=== PATIENT | female | born 1995 | race Caucasian/White ===

== ENCOUNTER 2020-08-21 14:30 | Inpatient (IN) | payer MEDICAID, SELFPAY ==
[~2020-08-21] VITALS: Ht 157.5 cm; Wt 83.9 kg
[2020-08-21] MEDS ORDERED: MISOPROSTOL 25 MCG TAB VG PRN (14:45)
[2020-08-21] MEDS ORDERED: METHYLERGONOVINE 0.2 MG/ML AMP IM PRN (14:45)
[2020-08-21] MEDS ORDERED: CARBOPROST 250 MCG/ML AMP IM PRN (14:45)
[2020-08-21] MEDS ORDERED: OXYTOCIN 20 UNITS in LACTATED RINGERS 1,000 ML IV SCH (14:45)
[2020-08-21] MEDS ORDERED: PNV91TAB10 PO (14:51)
[2020-08-21] MEDS: LACTATED RINGERS 1,000 ML IV SCH ×2 (15:39→22:54)
[2020-08-21] MEDS ORDERED: AMPICILLIN 2,000 MG in NACL 0.9% MINI-BAG PLUS 100 ML IV SCH (15:55)
[2020-08-21 16:08] LABS: BASOPHILS % (AUTO) 0.2 % (0.0-2.0); EOSINOPHILS % (AUTO) 0.7 % (0.0-4.0); HEMATOCRIT 33.7 % (36-48); HEMOGLOBIN 11.5 g/dL (12.0-16.0); LYMPHOCYTES % (AUTO) 14.6 % (20.5-51.1); MEAN CORPUSCULAR HEMOGLOBIN 31 pg (27-31); MEAN CORPUSCULAR HGB CONC 34 g/dL (33-37); MEAN CORPUSCULAR VOLUME 90.5 fL (80-94); MONOCYTES # (AUTO) 0.5 K/uL (0.8-1.0); MONOCYTES % (AUTO) 7.2 % (1.7-9.3); NEUTROPHILS # (AUTO) 5.5 K/uL (1.8-7.7); NEUTROPHILS % (AUTO) 77.3 % (42.2-75.2); PLATELET COUNT (AUTO) 148 K/uL (140-450); RED BLOOD CELL COUNT(AUTO) 3.73 MIL/uL (4.20-5.40); RED CELL DISTRIBUTION WIDTH 14.3 % (11.6-13.7); WHITE BLOOD COUNT (AUTO) 7.1 K/uL (4.8-10.8)
[2020-08-21] MEDS ORDERED: AMPICILLIN 2,000 MG VIAL ONE (16:22)
[2020-08-21 16:26] LABS: ALBUMIN 2.6 g/dL (3.4-5.0); ANION GAP 14.2 (8-16); CARBON DIOXIDE 22.5 mmol/L (21-32); CREATININE 0.4 mg/dL (0.6-1.3); POTASSIUM 3.7 mmol/L (3.5-5.1); TOTAL BILIRUBIN 0.3 mg/dL (0.0-1.0)
[2020-08-21 16:30] LABS: APPEARANCE,URINE CLEAR (CLEAR); BILIRUBIN,URINE NEGATIVE (NEGATIVE); BLOOD, URINE NEGATIVE (NEGATIVE); COLOR,URINE YELLOW (YELLOW); UGLUCOSE NEGATIVE (NEGATIVE)
[2020-08-21 16:31] LABS: LEUKOCYTE ESTERASE ,URINE NEGATIVE (NEGATIVE); NITRITE, URINE NEGATIVE (NEGATIVE)
[2020-08-21 16:35] LABS: BARBITURATE, URINE NEGATIVE ng/ml (NEG <=200); BENZODIAZEPINE, URINE NEGATIVE ng/mL (NEG <=200); CANNABINOID, URINE NEGATIVE ng/mL (NEG <=50); COCAINE, URINE NEGATIVE ng/mL (NEG <=300); OPIATE, URINE NEGATIVE ng/mL (NEG <=2000); PHENCYCLIDINE SCREEN,URINE NEGATIVE ng/mL (NEG <=25)
[2020-08-21] MEDS ORDERED: NALBUPHINE 10 MG/ML AMP IVP PRN (18:10)
[2020-08-21] MEDS ORDERED: PROMETHAZINE 25 MG/ML VIAL IVP PRN (18:10)
[2020-08-21] MEDS ORDERED: fentaNYL citrate 0.05 MG/ML VIAL IVP PRN (19:30)
[2020-08-21] MEDS ORDERED: AMPICILLIN 1,000 MG VIAL ONE (20:09)
[2020-08-21] MEDS: AMPICILLIN 1,000 MG in NACL 0.9% MINI-BAG PLUS 50 ML IV SCH (20:34)
[2020-08-21] MEDS ORDERED: ROPIVACAINE 0.2%/NS PREMIX 200 ML EPI ONE (22:57)
[2020-08-22] MEDS ORDERED: AMPICILLIN 1,000 MG VIAL ONE ×5 (00:01→12:29)
[2020-08-22] MEDS: AMPICILLIN 1,000 MG in NACL 0.9% MINI-BAG PLUS 50 ML IV SCH ×3 (00:33→12:48)
[2020-08-22] MEDS ORDERED: OXYTOCIN 10 UNITS/ML VIAL ONE (04:37)
--- NOTE | 2020-08-22 07:29 | NUR ---
PATIENT HAS BEEN SCREENED AND CATEGORIZED LOW NUTRITION RISK. PATIENT WILL BE SEEN WITHIN 7 DAYS OF ADMISSION. 08/28/20 BONG COTTRELL MBA, RD
[2020-08-22] MEDS: LACTATED RINGERS 1,000 ML IV SCH ×2 (08:35→12:37)
[2020-08-22] MEDS: ACETAMINOPHEN 325 MG TAB PO PRN ×2 (12:55→13:03)
[2020-08-22] MEDS ORDERED: ROPIVACAINE 0.2%/NS PREMIX 200 ML EPI ONE (15:28)
[2020-08-22] MEDS ORDERED: METHYLERGONOVINE 0.2 MG/ML AMP IM PRN (17:30)
[2020-08-22] MEDS ORDERED: TEMAZEPAM 15 MG CAP PO PRN (17:30)
[2020-08-22] MEDS ORDERED: METHYLERGONOVINE 0.2 MG TAB PO PRN (17:30)
[2020-08-22] MEDS ORDERED: BENZOCAINE/MENTHOL 20%-0.5% 60 GM CAN TP PRN (17:30)
[2020-08-22] MEDS ORDERED: OXYTOCIN 10 UNITS/ML VIAL IM PRN (17:30)
[2020-08-22] MEDS ORDERED: IBUPROFEN 800 MG TAB ONE (18:23)
[2020-08-22] MEDS: oxyCODONE/APAP 5/325 MG 1 TAB TAB PO PRN (20:17)
[2020-08-22] MEDS ORDERED: DOCUSATE SOD/SENNA 50/8.6 MG 1 TAB PO SCH (21:00)
[2020-08-23] MEDS: IBUPROFEN 800 MG TAB PO PRN ×3 (02:21→19:46)
[2020-08-23] MEDS: oxyCODONE/APAP 5/325 MG 1 TAB TAB PO PRN ×2 (04:20→16:10)
[2020-08-23 08:08] LABS: HEMATOCRIT 30.5 % (36-48); HEMOGLOBIN 10.4 g/dL (12.0-16.0)
[2020-08-24] MEDS: oxyCODONE/APAP 5/325 MG 1 TAB TAB PO PRN ×3 (01:21→13:30)
[2020-08-24] MEDS: IBUPROFEN 800 MG TAB PO PRN (16:26)
== END 2020-08-24 17:20 | disposition home or self-care (01) | DRG 560 ==
LOC: MLD 14:30 → MFCC 08-22 19:47
PROVIDERS: ADMIT Obstetrics & Gynecology; ATTEND Obstetrics & Gynecology
PROC: 10D07Z6 Extraction of Products of Conception, Vacuum, Via Natural or Artificial Opening (ICD-10-PCS; principal; 2020-08-22)
PROC: 0W8NXZZ Division of Female Perineum, External Approach (ICD-10-PCS; 2020-08-22)
DX: O66.5 Attempted application of vacuum extractor and forceps (principal); Z37.0 Single live birth; Z3A.39 39 weeks gestation of pregnancy; Z20.828 Contact with and (suspected) exposure to other viral communicable diseases
CPT/HCPCS: 36415; 51702; 59200; 80053; 80305; 81003; 85018; 85025; 86592; 86886; 86900; 86901; J0290; J2210; J2300; J2550; J2590; J2795